=== PATIENT | female | born 1940 | race Caucasian/White ===

== ENCOUNTER → 2019-04-19 | Outpatient (CLI) | payer MEDICARE, BC ==
--- NOTE | 2019-04-19 11:24 | RAD ---
ABDOMEN COMPLETE History: Elevated liver function tests Comparison: None. Findings: Multiple sonographic images of the abdomen are submitted. There is no abnormality of the visualized pancreas. There is segmental visualization of the inferior vena cava. No focal hepatic lesion is demonstrated. Right lobe of the liver measured 14.5 cm longitudinal. Right kidney measured 8.6 x 4 x 4.2 cm, no hydronephrosis. There has been cholecystectomy. Common bile duct is within normal limits up to 0.5 cm. Abdominal aortic caliber is within normal limits up to 2.1 m. Spleen measured up to 8.7 cm. No significant free fluid is demonstrated. Left kidney measured 10.6 x 4.5 x 5 cm, no hydronephrosis. Impression: 1. No significant abnormality is demonstrated. There has been cholecystectomy. Electronically signed by: Dayne Ledesma MD (04/19/2019 11:22 AM) [id number]
== END | disposition home or self-care (01) ==
LOC: US 07:41
PROVIDERS: ATTEND Family Medicine
DX: R94.5 Abnormal results of liver function studies (principal); Z90.49 Acquired absence of other specified parts of digestive tract
CPT/HCPCS: 76700